=== PATIENT | male | born 1975 | race American Indian/Alaskan Native ===

== ENCOUNTER 2016-10-24 00:57 | Emergency (ER) | payer SELFPAY ==
[2016-10-24 02:24] VITALS: BP 140/87
[2016-10-24 03:42] LABS: Basophils % (Auto) 0.6 % (0.0-1.8); Eosinophils % (Auto) 3.5 % (0.0-4.3); Hematocrit 43.2 % (35.5-45.6); Hemoglobin 14.7 gm/dl (11.8-15.2); Mean Corpuscular HGB Conc 34 % (32-34); Mean Corpuscular Hemoglobin 30 pg (28-32); Mean Corpuscular Volume 89 fl (84-94); Platelet Count 244 K/mm3 (140-440); Red Blood Count 4.87 M/mm3 (3.65-5.03); Red Cell Distribution Width 13.9 % (13.2-15.2); White Blood Count 6.1 K/mm3 (4.5-11.0)
[2016-10-24 03:45] LABS: Anion Gap 17 mmol/L; BUN/Creatinine Ratio 10.83; Blood Urea Nitrogen 13 mg/dL (9-20); Calcium 9.2 mg/dL (8.4-10.2); Carbon Dioxide 26 mmol/L (22-30); Chloride 101.9 mmol/L (98-107); Glucose 87 mg/dL (75-100); Potassium 3.8 mmol/L (3.6-5.0); Sodium 141 mmol/L (137-145)
[2016-10-24 04:03] LABS: Urine Drugs of Abuse Note Disclamer
[2016-10-24 04:32] LABS: Bilirubin,Urine NEG (Negative); Blood,Urine NEG (Negative); Ketones,Urine TR mg/dL (Negative); Leukocyte Esterase,Urine MOD (Negative); Mucus,Urine 2+ /HPF; Nitrite,Urine NEG (Negative)
--- NOTE | 2016-10-24 06:58 | Emergency Department Report ---
HPI - General Chief Complaint: Psych Time Seen by Provider: 10/24/16 02:41 - HPI HPI: This is a 41-year-old Afro-[place]ov[place] male who presents the emergency department, dropped off by a friend, with a request to help with cocaine addiction. The patient has been on a elizabeth for the past 3 days. He last used it yesterday afternoon/evening at around 5 PM. He denies any chest pain, palpitations, fever or any physical complaints at this time. He denies any suicidal or homicidal ideations, auditory or visual hallucinations. He does not have a primary care doctor. He denies any psychiatric history. ED Past Medical Hx - Past Medical History Previous Medical History?: No - Surgical History Past Surgical History?: No - Social History Smoking Status: Current Every Day Smoker Substance Use Type: Cocaine - Medications Home Medications: Home Medications Medication Instructions Recorded Confirmed Last Taken Type Nitrofurantoin [place]/M-Cryst 100 mg PO Q12HR #14 capsule 10/24/16 Unknown Rx [Macrobid CAP] ED Review of Systems ROS: Stated complaint: DRUG ABUSE Other details as noted in HPI Comment: All other systems reviewed and negative Constitutional: denies: chills, fever Eyes: denies: eye pain, eye discharge, vision change ENT: denies: ear pain, throat pain Respiratory: denies: cough, shortness of breath, wheezing Cardiovascular: denies: chest pain, palpitations Gastrointestinal: denies: abdominal pain, nausea, diarrhea Genitourinary: denies: urgency, dysuria Musculoskeletal: denies: back pain, joint swelling, arthralgia Skin: denies: rash, lesions Neurological: denies: headache, weakness, paresthesias Physical Exam - Physical Exam Vital Signs: Vital Signs 10/24/16 02:16 Temperature 98 F Pulse Rate 63 Respiratory 16 Rate Blood Pressure 140/87 Blood Pressure 140/87 [Left] O2 Sat by Pulse 99 Oximetry Physical Exam: GENERAL: The patient is well-developed well-nourished. HEENT: Normocephalic. Atraumatic. Extraocular motions are intact. Patient has moist mucous membranes. Pupils equal reactive to light bilaterally. NECK: Supple. Trachea is midline. CHEST/LUNGS: Clear to auscultation. There is no respiratory distress noted. HEART/CARDIOVASCULAR: Regular. There is no tachycardia. There is no gallop rub or murmur. ABDOMEN: Abdomen is soft, nontender. Patient has normal bowel sounds. There is no abdominal distention. SKIN: There is no rash. There is no edema. There is no diaphoresis. NEURO: The patient is awake, alert, and oriented. The patient is cooperative. The patient has no focal neurologic deficits. The patient has normal speech and gait. Cranial nerves II through XII grossly intact. MUSCULOSKELETAL: There is no tenderness or deformity. There is no limitation range of motion. There is no evidence of acute injury. ED Course Vital Signs 10/24/16 02:16 Temperature 98 F Pulse Rate 63 Respiratory 16 Rate Blood Pressure 140/87 Blood Pressure 140/87 [Left] O2 Sat by Pulse 99 Oximetry ED Medical Decision Making - Lab Data Result diagrams: 10/24/16 03:13 10/24/16 03:13 - Medical Decision Making 41-year-old male presents to the emergency department with the request for cocaine addiction. Patient does not appear acutely intoxicated. No suicidal homicidal ideations, auditory or visual hallucinations. Patient's vital signs are stable throughout his ED course. Patient's labs are mostly unremarkable except for positive cocaine and marijuana as well as a urinary tract infection. I contacted the crisis therapist to see if there is any way for inpatient treatment for his cocaine addiction but the patient does not appear to have insurance and there is no inpatient admissions available. He has been given resources for his addictions. He will be given a prescription for her very tract infection. He does not appear to be a candidate to be admitted at this time.. He will be discharged home but encouraged to return with any worsening of symptoms or any acute distress. Critical Care Time: No Critical care attestation.: If time is entered above; I have spent that time in minutes in the direct care of this critically ill patient, excluding procedure time. ED Disposition Clinical Impression: Cocaine abuse UTI (urinary tract infection) Qualifiers: Urinary tract infection type: acute cystitis Hematuria presence: without hematuria Qualified Code(s): N30.00 - Acute cystitis without hematuria Disposition: DISCHARGED TO HOME OR SELFCARE Is pt being admited?: No Condition: Stable Instructions: Cocaine Abuse (ED), Urinary Tract Infection in Men (ED) Additional Instructions: Please follow-up with the resources given to by the behavioral health counselor to help with your cocaine addiction. Return to the emergency department with any acute distress. I also given U antibiotics for treatment of a urinary tract infection. I will give you a referral for a local urologist, Dr. Tony, to follow up regarding your urinary tract infection. Prescriptions: Nitrofurantoin [place]/M-Cryst [Macrobid CAP] 100 mg PO Q12HR #14 capsule Referrals: PRIMARY CARE, [Primary Care Provider] - 3-5 Days RITA TONY MD [Staff Physician] - 3-5 Days Time of Disposition: 06:59
== END 2016-10-24 07:20 | disposition home or self-care (01) ==
LOC: EEVIPCON 00:57 → ED 00:57
DX: F14.10 Cocaine abuse, uncomplicated (principal); N30.00 Acute cystitis without hematuria; F17.200 Nicotine dependence, unspecified, uncomplicated
CPT/HCPCS: 36415; 80048; 80307; 81001; 85025; 99283; G0480; 80320

== ENCOUNTER 2016-10-24 07:21 | Emergency (ER) | payer OTHER ==
[2016-10-24] MEDS ORDERED: HALDOL IM PRN (13:47)
[2016-10-24] MEDS ORDERED: ATIVAN IM PRN (13:47)
[2016-10-24] MEDS ORDERED: BENADRYL IM PRN (13:47)
--- NOTE | 2016-10-24 13:53 | Emergency Department Report ---
HPI - General Chief Complaint: Psych Time Seen by Provider: 10/24/16 13:36 - HPI HPI: Room 17 Patient is a 41-year-old male presenting with a chief complaint of suicidal ideation and cocaine abuse. The patient was seen and discharged from the ED this morning diagnosed with cocaine abuse and a UTI. Patient states she never got the prescription for nitrofurantoin. The patient states since she was discharged he develop suicidal ideation and states that because he cannot get help and he wants to stop using cocaine he wanted to kill himself. Patient states he attempted to walk into traffic this morning. Location: Mental state Duration: hours Quality: Suicidal Severity: Severe Modifying factors: [see above] Context: [see above] Mode of transportation: [not driving] ED Past Medical Hx - Past Medical History Previous Medical History?: Yes Additional medical history: Cocaine abuse - Surgical History Past Surgical History?: No - Family History Family history: no significant - Social History Smoking Status: Current Every Day Smoker Substance Use Type: Alcohol, Cocaine - Medications Home Medications: Home Medications Medication Instructions Recorded Confirmed Last Taken Type Nitrofurantoin [place]/M-Cryst 100 mg PO Q12HR #14 capsule 10/24/16 Unknown Rx [Macrobid CAP] ED Review of Systems ROS: Stated complaint: SUICIDAL THOUGHTS Other details as noted in HPI Comment: All other systems reviewed and negative Constitutional: denies: chills, fever Eyes: denies: eye pain, eye discharge, vision change ENT: denies: ear pain, throat pain Respiratory: denies: cough, shortness of breath, wheezing Cardiovascular: denies: chest pain, palpitations Endocrine: no symptoms reported Gastrointestinal: denies: abdominal pain, nausea, diarrhea Genitourinary: denies: urgency, dysuria Musculoskeletal: denies: back pain, joint swelling, arthralgia Skin: denies: rash, lesions Neurological: denies: headache, weakness, paresthesias Psychiatric: suicidal thoughts Hematological/Lymphatic: denies: easy bleeding, easy bruising Physical Exam - Physical Exam Vital Signs: Vital Signs 10/24/16 10/24/16 08:08 13:24 Temperature 97.6 F Pulse Rate 56 L Respiratory 20 16 Rate Blood Pressure 126/86 O2 Sat by Pulse 100 Oximetry Physical Exam: GENERAL: The patient is well-developed well-nourished male sleeping on stretcher under she eventually able to be awakened after stacked tactile stimuli. [] HEENT: Normocephalic. Atraumatic. Extraocular motions are intact. Patient has moist mucous membranes. NECK: Supple. Trachea midline CHEST/LUNGS: Clear to auscultation. There is no respiratory distress noted. HEART/CARDIOVASCULAR: Regular. There is no tachycardia. There is no gallop rub or murmur. ABDOMEN: Abdomen is soft, nontender. Patient has normal bowel sounds. There is no abdominal distention. SKIN: There is no rash. There is no edema. There is no diaphoresis. NEURO: The patient is awake, alert, and oriented. The patient is cooperative. The patient has normal speech MUSCULOSKELETAL: There is no evidence of acute injury. ED Course Vital Signs 10/24/16 10/24/16 08:08 13:24 Temperature 97.6 F Pulse Rate 56 L Respiratory 20 16 Rate Blood Pressure 126/86 O2 Sat by Pulse 100 Oximetry ED Medical Decision Making - Lab Data Laboratory Tests 10/24/16 10/24/16 10/24/16 13:46 13:46 13:46 Salicylates < 0.3 L Acetaminophen < 15.0 Plasma/Serum Alcohol < 0.01 - Differential Diagnosis suicidal ideation, cocaine abuse Critical care attestation.: If time is entered above; I have spent that time in minutes in the direct care of this critically ill patient, excluding procedure time. ED Disposition Clinical Impression: Cocaine abuse, Suicidal ideation Disposition: DC/TX PSY HOSP/PSY UNIT Is pt being admited?: No Does the pt Need Aspirin: No Condition: Serious Referrals: PRIMARY CARE, [Primary Care Provider] - 3-5 Days Time of Disposition: 13:54 (awaiting acceptance)
[2016-10-24] MEDS: MACROBID PO SCH ×2 (14:24→21:30)
[2016-10-24 18:17] LABS: Basophils % (Auto) 0.2 % (0.0-1.8); Eosinophils % (Auto) 5.2 % (0.0-4.3); Hematocrit 42.8 % (35.5-45.6); Mean Corpuscular HGB Conc 33 % (32-34); Mean Corpuscular Hemoglobin 29 pg (28-32); Mean Corpuscular Volume 90 fl (84-94); Platelet Count 233 K/mm3 (140-440); Red Blood Count 4.76 M/mm3 (3.65-5.03); Red Cell Distribution Width 14.2 % (13.2-15.2); White Blood Count 5.8 K/mm3 (4.5-11.0)
[2016-10-24 18:30] LABS: Anion Gap 14 mmol/L; BUN/Creatinine Ratio 13.07; Blood Urea Nitrogen 17 mg/dL (9-20); Calcium 8.9 mg/dL (8.4-10.2); Carbon Dioxide 28 mmol/L (22-30); Chloride 101.8 mmol/L (98-107); Glucose 118 mg/dL (75-100); Sodium 140 mmol/L (137-145)
[2016-10-25] MEDS: MACROBID PO SCH (10:04)
[2016-10-25 11:30] VITALS: BP 119/68
--- NOTE | 2016-10-25 11:55 | Emergency Department Report ---
Blank Doc - Documentation Documentation: Vital Signs - 24 hr 10/24/16 10/24/16 10/25/16 13:24 22:00 08:20 Temperature 98.2 F Pulse Rate 69 Respiratory 16 18 16 Rate Blood Pressure 90/68 [Left] O2 Sat by Pulse 98 98 Oximetry 10/25/16 10:00 Temperature 98.5 F Pulse Rate 73 Respiratory 16 Rate Blood Pressure 119/68 [Left] O2 Sat by Pulse 98 Oximetry Vital signs reviewed. No events reported. Awaiting placement
--- NOTE | 2016-10-25 12:59 | Consultation ---
<JUANIS LYNN - Last Filed: 10/25/16 17:22> History of Present Illness - Reason for Consult Consult date: 10/25/16 Reason for consult: Mental Health Evaulation Requesting physician: AMAIRANI AMADOR - Chief Complaint Chief complaint: "I need help to get off drugs" - History of Present Psychiatric Illness Patient is a 41-year-old AA male presenting with a chief complaint of suicidal ideation and cocaine abuse. Today patient is calma nd cooperative during discussion. He explained that he came to [facility] to seek help for his cocaine addiction. Patient stated that he use cocaine to help him with the mental pain he has experienced over his lifetime. Patient acknowledged being in long term for 15 years and his current relationship with his kids mother is dysfunctional. Yesterday he wanted to end it all by walking in traffic and killing himself, per the patient. He states that he thought about suicide in the past, but didn' t have a plan. He states that he hasn't rested well in a couple days, because he thinks about his current life, "I don't like my life." he states that he has been struggling with depression for a while. He rate his depression today a 6/10 , with 10 being the worse. He denies SI/HI's or AVH's at this time. He admits to being anxious and restless. 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 Medications and Allergies Allergies Allergy/AdvReac Type Severity Reaction Status Date / Time No Known Allergies Allergy Verified 10/23/15 11:08 Home Medications Medication Instructions Recorded Confirmed Last Taken Type Nitrofurantoin [place]/M-Cryst 100 mg PO Q12HR #14 capsule 10/24/16 10/25/16 Unknown Rx [Macrobid CAP] Active Meds: Active Medications Diphenhydramine HCl (Benadryl) 50 mg IM Q6H PRN PRN Reason: Agitation Haloperidol Lactate (Haldol) 10 mg IM Q8H PRN PRN Reason: Agitation Lorazepam (Ativan) 2 mg IM Q8H PRN PRN Reason: Agitation Nitrofurantoin Macrocrystals (Macrobid) 100 mg PO BID YANN Last Admin: 10/25/16 10:04 Dose: 100 mg Past psychiatric history - Past Medical History Past Surgical History: No surgical history - past Psychiatric treatment and history psychiatric treatment history: Patient denies psy o r family hx. - Social History Social history: (Currently employed) Mental Status Exam - Vital signs Last Vital Signs Temp 98.5 F 10/25/16 10:00 Pulse 73 10/25/16 10:00 Resp 16 10/25/16 10:00 BP 119/68 10/25/16 10:00 Pulse Ox 98 10/25/16 10:00 - Exam Narrative exam: ROS (-) psychosis Orientation: time, place, person Affect: anxious Mood: appropriate Thought content: other (None) Thought Process: Intact Perceptions: none Speech: normal rate and pattern Concentration: other (Intact) Motor activity: restless, other (Ambulatory) Level of consciousness: alert Memory: Intact Sleep Symptoms: Insomnia Interaction: cooperative Results Result Diagrams: 10/24/16 18:02 10/24/16 18:02 Abnormal lab results 10/24/16 10/24/16 10/24/16 Range/Units 13:46 18:02 18:02 Lymph % (Auto) 37.0 H (13.4-35.0) % [place] % (Auto) 10.8 H (0.0-7.3) % Eos % (Auto) 5.2 H (0.0-4.3) % Glucose 118 H (75-100) mg/dL Salicylates < 0.3 L (2.8-20.0) mg/dL All other labs normal. Assessment and Plan Assessment and plan: Impression: Patient is a 41-year-old AA male presenting with a chief complaint of suicidal ideation and cocaine abuse. Today patient is calm and cooperative during discussion and denies SI/HI's. He explained that he came to [facility] to seek help for his cocaine addiction. Patient is positive for cocaine and marijuana. Patient is not a threat to himself at this time. Recommendation/Plan: Rescind 1013. Patient given outpatient/[facility] substance abuse information for his local area. Discussed generalized coping skills with patient during assessment. Safety contract completed with patient. ED Disposition Disposition: DISCHARGED TO HOME OR SELFCARE Condition: Serious Additional Instructions: Follow-up with the [facility] program options you have been given. Please return to the ED if you have any concerns of harm to herself. Referrals: PRIMARY CARE, [Primary Care Provider] - 3-5 Days <EBEN CHAPIN - Last Filed: 10/25/16 19:14> Medications and Allergies Active Meds: Active Medications Diphenhydramine HCl (Benadryl) 50 mg IM Q6H PRN PRN Reason: Agitation Haloperidol Lactate (Haldol) 10 mg IM Q8H PRN PRN Reason: Agitation Lorazepam (Ativan) 2 mg IM Q8H PRN PRN Reason: Agitation Nitrofurantoin Macrocrystals (Macrobid) 100 mg PO BID YANN Last Admin: 10/25/16 10:04 Dose: 100 mg Mental Status Exam - Vital signs Last Vital Signs Temp 98.5 F 10/25/16 10:00 Pulse 73 10/25/16 10:00 Resp 16 10/25/16 10:00 BP 119/68 10/25/16 10:00 Pulse Ox 98 10/25/16 10:00 Results Result Diagrams: 10/24/16 18:02 10/24/16 18:02 Abnormal lab results 10/24/16 10/24/16 Range/Units 16:12 18:02 Glucose 118 H (75-100) mg/dL Urine WBC (Auto) 35.0 H (0.0-6.0) /HPF All other labs normal. ED Disposition Is pt being admited?: No Does the pt Need Aspirin: No Time of Disposition: 18:29 ED Course Vital Signs 10/24/16 10/24/16 10/24/16 08:08 13:24 22:00 Temperature 97.6 F 98.2 F Pulse Rate 56 L 69 Respiratory 20 16 18 Rate Blood Pressure 126/86 Blood Pressure 90/68 [Left] O2 Sat by Pulse 100 98 Oximetry 10/25/16 10/25/16 08:20 10:00 Temperature 98.5 F Pulse Rate 73 Respiratory 16 16 Rate Blood Pressure Blood Pressure 119/68 [Left] O2 Sat by Pulse 98 98 Oximetry - Reevaluation(s) Reevaluation #1: Patient was reassessed by crisis counselor. Then have phone conversation with the psychiatrist, the 1013 was rescinded. The crisis counselors provided the patient with several long-term stay options. Patient denies any suicidal or homicidal ideations at this time. He is answering questions appropriately. Lucid and appropriate for home at this time. He does contract to safety.
[2016-10-25 16:23] LABS: Urine Drugs of Abuse Note Disclamer
[2016-10-25 16:40] LABS: Bilirubin,Urine NEG (Negative); Blood,Urine NEG (Negative); Ketones,Urine NEG (Negative); Leukocyte Esterase,Urine SM (Negative); Mucus,Urine FEW /HPF; Nitrite,Urine NEG (Negative); Protein,Urine <15 mg/dL mg/dL (Negative); Urobilinogen,Urine < 2.0 mg/dL (<2.0)
--- NOTE | 2016-10-25 19:19 | Event Note ---
Date: 10/25/16 Impression: Patient was calm and cooperative during assessment. He denies SI/HI' s or AVH's. He is no longer a threat to self. Recommendation/Plan: 1013 rescinded. Patient was given outpatient information for mental health services and substance abuse. Safety contract completed with patient.
== END 2016-10-25 18:45 | disposition home or self-care (01) ==
LOC: EEVIPCON 07:21 → ED 07:21
DX: R45.851 Suicidal ideations (principal); F14.10 Cocaine abuse, uncomplicated; F17.200 Nicotine dependence, unspecified, uncomplicated
CPT/HCPCS: 36415; 80048; 80307; 81001; 85025; 99284; G0480; 80320

== ENCOUNTER 2017-03-09 06:03 | Emergency (ER) | payer SELFPAY ==
[2017-03-09 07:13] LABS: Basophils % (Auto) 0.6 % (0.0-1.8); Eosinophils % (Auto) 1.5 % (0.0-4.3); Hematocrit 40.6 % (35.5-45.6); Hemoglobin 13.9 gm/dl (11.8-15.2); Mean Corpuscular HGB Conc 34 % (32-34); Mean Corpuscular Hemoglobin 31 pg (28-32); Mean Corpuscular Volume 91 fl (84-94); Platelet Count 235 K/mm3 (140-440); Red Blood Count 4.45 M/mm3 (3.65-5.03); Red Cell Distribution Width 13.8 % (13.2-15.2); White Blood Count 5.9 K/mm3 (4.5-11.0)
[2017-03-09 07:30] LABS: Anion Gap 23 mmol/L; Blood Urea Nitrogen 17 mg/dL (9-20); Carbon Dioxide 25 mmol/L (22-30); Chloride 122.3 mmol/L (98-107); Glucose 107 mg/dL (75-100); Potassium 5.1 mmol/L (3.6-5.0)
[2017-03-09 07:42] LABS: Sodium 165 mmol/L (137-145)
[2017-03-09 13:45] LABS: Anion Gap 20 mmol/L; Blood Urea Nitrogen 14 mg/dL (9-20); Calcium 9.1 mg/dL (8.4-10.2); Carbon Dioxide 25 mmol/L (22-30); Chloride 93.7 mmol/L (98-107); Glucose 96 mg/dL (75-100); Potassium 4.1 mmol/L (3.6-5.0)
[2017-03-09 13:46] LABS: Sodium 135 mmol/L (137-145)
[2017-03-09] MEDS ORDERED: D5W 1,000 ML IV SCH (14:00)
[2017-03-09 14:03] LABS: Urine Drugs of Abuse Note Disclamer
[2017-03-09 14:10] VITALS: BP 128/78
--- NOTE | 2017-03-09 15:35 | Emergency Department Report ---
ED Psych HPI - General Chief Complaint: Psych Stated Complaint: MENTAL HEALTH Time Seen by Provider: 03/09/17 14:22 Source: patient Mode of arrival: Ambulatory - History of Present Illness MD Complaint: suicidal ideation, feels depressed, altered mental status -: Gradual Associated Psychiatric Symptoms: depression, suicidal ideation History of same: Yes Quality: constant Improves With: none Worsens With: none Associated Symptoms: insomnia. denies: confusion, headache, shortness of breath , nausea, vomiting, syncope Treatments Prior to Arrival: none - Related Data Previous Rx's Medication Instructions Recorded Last Taken Type Nitrofurantoin [place]/M-Cryst 100 mg PO Q12HR #14 capsule 10/24/16 Unknown Rx [Macrobid CAP] Allergies Allergy/AdvReac Type Severity Reaction Status Date / Time No Known Allergies Allergy Verified 10/23/15 11:08 ED Review of Systems ROS: Stated complaint: MENTAL HEALTH Other details as noted in HPI Comment: All other systems reviewed and negative ED Past Medical Hx - Past Medical History Previous Medical History?: Yes Additional medical history: Cocaine abuse - Surgical History Past Surgical History?: No - Social History Smoking Status: Former Smoker Substance Use Type: Cocaine - Medications Home Medications: Home Medications Medication Instructions Recorded Confirmed Last Taken Type Nitrofurantoin [place]/M-Cryst 100 mg PO Q12HR #14 capsule 10/24/16 10/25/16 Unknown Rx [Macrobid CAP] ED Physical Exam - General Limitations: No Limitations General appearance: alert, in no apparent distress - Head Head exam: Present: atraumatic, normocephalic - Eye Eye exam: Present: normal appearance - ENT ENT exam: Present: mucous membranes moist - Neck Neck exam: Present: normal inspection - Respiratory Respiratory exam: Present: normal lung sounds bilaterally. Absent: respiratory distress - Cardiovascular Cardiovascular Exam: Present: regular rate, normal rhythm. Absent: systolic murmur, diastolic murmur, rubs, gallop - GI/Abdominal GI/Abdominal exam: Present: soft, normal bowel sounds - Rectal Rectal exam: Present: deferred - Extremities Exam Extremities exam: Present: normal inspection - Back Exam Back exam: Present: normal inspection - Neurological Exam Neurological exam: Present: alert, oriented X3 - Psychiatric Psychiatric exam: Present: depressed, suicidal ideation - Skin Skin exam: Present: warm, dry, intact, normal color. 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 Tomas decide further disposition Critical care attestation.: If time is entered above; I have spent that time in minutes in the direct care of this critically ill patient, excluding procedure time. ED Disposition Clinical Impression: Depression, Polysubstance (excluding opioids) dependence Disposition: DC-01 TO HOME OR SELFCARE Is pt being admited?: No Does the pt Need Aspirin: No Condition: Fair Instructions: Polysubstance Abuse (ED) Referrals: PRIMARY CARE, [Primary Care Provider] - 3-5 Days Time of Disposition: 17:30
[2017-03-09 16:27] LABS: Alanine Aminotransferase 9 units/L (7-56); Albumin 3.8 g/dL (3.9-5); Albumin/Globulin Ratio 1.2 %; Alkaline Phosphatase 82 units/L (35-129); Anion Gap 15 mmol/L; BUN/Creatinine Ratio 15.55; Blood Urea Nitrogen 14 mg/dL (9-20); Calcium 8.7 mg/dL (8.4-10.2); Carbon Dioxide 28 mmol/L (22-30); Chloride 100.9 mmol/L (98-107); Glucose 87 mg/dL (75-100); Potassium 4.1 mmol/L (3.6-5.0); Sodium 140 mmol/L (137-145)
== END 2017-03-09 22:20 | disposition home or self-care (01) ==
LOC: EEVIPCON 06:03 → ED 06:03
DX: F32.9 Major depressive disorder, single episode, unspecified (principal); F11.10 Opioid abuse, uncomplicated
CPT/HCPCS: 36415; 80048; 80053; 80307; 85025; 99284; G0480; 80320